=== PATIENT | male | born 1950 | race Two or more races ===

== ENCOUNTER 2018-02-05 11:37 | Emergency (ER) | payer OTHER ==
[~2018-02-05] VITALS: Ht 175.3 cm; Wt 111.6 kg
[2018-02-05 11:49] VITALS: Ht 175.3 cm; Wt 111.6 kg
[2018-02-05 12:37] VITALS: BP 167/79
== END 2018-02-05 12:50 | disposition home or self-care (01) ==
LOC: ED 11:37
DX: G89.29 Other chronic pain (principal); M54.5 Low back pain; I10 Essential (primary) hypertension
CPT/HCPCS: J1885

== ENCOUNTER 2019-12-10 11:25 | Emergency (ER) | payer OTHER, SELFPAY ==
[~2019-12-10] VITALS: Ht 170.2 cm; Wt 108.9 kg
[2019-12-10 11:40] VITALS: Ht 170.2 cm; Wt 108.9 kg
[2019-12-10 13:53] VITALS: BP 137/79
== END 2019-12-10 13:52 | disposition home or self-care (01) ==
LOC: ED 11:25
DX: J11.1 Influenza due to unidentified influenza virus with other respiratory manifestations (principal); I10 Essential (primary) hypertension
CPT/HCPCS: 87804

== ENCOUNTER 2019-12-15 11:43 | Emergency (ER) | payer OTHER, SELFPAY ==
[~2019-12-15] VITALS: Ht 175.3 cm; Wt 108.9 kg
[2019-12-15 11:53] VITALS: BP 138/79; Ht 175.3 cm; Wt 108.9 kg
== END 2019-12-15 12:17 | disposition home or self-care (01) ==
LOC: ED 11:43
DX: U07.1 COVID-19 (principal); J11.1 Influenza due to unidentified influenza virus with other respiratory manifestations; I10 Essential (primary) hypertension